=== PATIENT | male | born 1995 | race Hispanic/Latino ===

== ENCOUNTER 2021-02-12 13:08 | Emergency (ER) | payer BC, SELFPAY ==
[2021-02-12] MEDS ORDERED: Fluorescein Opthalmic Strip ONE (13:35)
[2021-02-12] MEDS ORDERED: Tetracaine 0.5% PF 4 ML BOT ONE (13:35)
[2021-02-12] MEDS ORDERED: Boostrix 0.5 ML (Tdap) VIAL ONE (14:07)
== END 2021-02-12 14:20 | disposition home or self-care (01) ==
LOC: NAV ERS 13:08
DX: H57.89 Other specified disorders of eye and adnexa (principal); Z23 Encounter for immunization
CPT/HCPCS: 90471; 90715